=== PATIENT | male | born 1955 | race Two or more races ===

== ENCOUNTER → 2017-03-18 | Outpatient (CLI) | payer BC ==
[~2017-03-18] MED LIST: BENA40TA2 PO; HYDR25TA4 PO; METO-308 PO; [UNRECOGNIZED DRUG - OTHER] PO
[2017-03-18 09:50] LABS: ALBUMIN 4.4 g/dL (3.4-4.8); CREATININE 0.71 mg/dL (0.55-1.30); POTASSIUM 4.1 mmol/L (3.5-5.1); THYROID STIMULATING HORMONE 0.32 uIu/mL (0.34-4.82); TOTAL BILIRUBIN 0.8 mg/dL (0.0-1.0); URIC ACID 5.5 mg/dL (2.4-7.0)
== END | disposition home or self-care (01) ==
LOC: SLB 08:13
PROVIDERS: ATTEND Family Medicine
DX: I10 Essential (primary) hypertension (principal); E78.2 Mixed hyperlipidemia; M1A.40X0 Other secondary chronic gout, unspecified site, without tophus (tophi)
CPT/HCPCS: 36415; 80053; 80061; 84153; 84443-TC; 84550-TC

== ENCOUNTER 2018-08-06 11:16 | Outpatient (CLI) | payer OTHER ==
[~2018-08-06 11:16] MED LIST changes: -METO-308 PO; +METO-544 PO
== END 2018-08-06 19:26 | disposition home or self-care (01) ==
LOC: SRD 11:16
PROVIDERS: ATTEND Family Medicine
DX: M18.11 Unilateral primary osteoarthritis of first carpometacarpal joint, right hand (principal); S69.91XA Unspecified injury of right wrist, hand and finger(s), initial encounter; X58.XXXA Exposure to other specified factors, initial encounter; Y93.89 Activity, other specified; Y92.89 Other specified places as the place of occurrence of the external cause; Y99.8 Other external cause status